=== PATIENT | female | born 1980 | race Caucasian/White ===

== ENCOUNTER 2018-01-31 16:24 | Inpatient (IN) | payer MEDICAID ==
[~2018-01-31] VITALS: Ht 170.2 cm; Wt 70.9 kg
[2018-01-31] MEDS ORDERED: PANT40TA25 PO (16:56)
[2018-01-31] MEDS ORDERED: FERR-82 PO (16:56)
[2018-01-31] MEDS ORDERED: RANI150T7 PO (16:56)
[2018-01-31 17:14] LABS: ANION GAP 13 mmol/L (8-16); CALCIUM, TOTAL 8.8 mg/dL (8.8-10.5); CARBON DIOXIDE 22 mmol/L (22-29); CHLORIDE 103 mmol/L (98-107); GLOMERULAR FILTR. RATE CALC > 60 mL/min (>60); GLUCOSE,RANDOM 108 mg/dL (70-110); POTASSIUM 3.8 mmol/L (3.5-5.1); SODIUM SERUM 138 mmol/L (136-145); UREA NITROGEN, BLOOD 14 mg/dL (7-18)
[2018-01-31 17:21] LABS: ALANINE AMINOTRANSFERASE 17 U/L (12-78); ALBUMIN 4.2 g/dL (3.4-5.0); ALKALINE PHOSPHATASE 54 U/L (46-116); ASPARTATE AMINOTRANSFERASE 14 U/L (15-37); BILIRUBIN,TOTAL 0.2 mg/dL (0.1-1.0); TOTAL PROTEIN, SERUM 8.1 g/dL (6.4-8.2)
[2018-01-31 17:24] LABS: EOSINOPHILS % (AUTO) 0.3 % (1.0-6.0); HEMATOCRIT 33.6 % (36-46); HEMOGLOBIN 10.6 g/dL (12.0-16.0); LYMPHOCYTES # (AUTO) 2.3 K/uL (1.0-4.8); LYMPHOCYTES % (AUTO) 20.2 % (22.0-44.0); MEAN CORPUSCULAR HEMOGLOBIN 19.2 pg (26.0-34.0); MEAN CORPUSCULAR HGB CONC 31.5 G/dL (31.0-37.0); MEAN CORPUSCULAR VOLUME 61 fL (80-100); MONOCYTES # (AUTO) 0.7 K/uL (0.1-1.0); MONOCYTES % (AUTO) 6.2 % (2.0-9.0); NEUTROPHILS # (AUTO) 8.1 K/uL (1.8-7.7); NEUTROPHILS % (AUTO) 72.3 % (40.0-70.0); PLATELET COUNT (AUTO) 652 K/uL (150-450); RED BLOOD CELL COUNT(AUTO) 5.51 MIL/uL (4.00-5.20)
[2018-01-31] MEDS ORDERED: CYCLOBENZAPRINE HCL 10 MG TABLET PO ONE (17:45)
[2018-01-31 18:08] LABS: PLATELET MORPHOLOGY COMMENT LARGE PLTS PRESENT
[2018-01-31] MEDS ORDERED: LOPERAMIDE HCL 2 MG CAPSULE PO PRN (20:15)
[2018-01-31] MEDS ORDERED: LORazepam 1 MG TABLET PO ONE (20:15)
[2018-01-31] MEDS ORDERED: LORazepam 2 MG TABLET PO PRN (20:15)
[2018-01-31] MEDS ORDERED: GuaiFENesin/D-METHORPHAN [SUGAR-FREE] 200-20MG/10 ML SYRUP UDCUP PO PRN (20:15)
[2018-01-31] MEDS ORDERED: HydrOXYzine PAMOATE 50 MG CAPSULE PO PRN (20:15)
[2018-01-31] MEDS ORDERED: CYANOCOBALAMIN 1,000 MCG/ML VIAL IM ONE (20:15)
[2018-01-31] MEDS ORDERED: ACETAMINOPHEN 325 MG TABLET PO ONE (21:00)
[2018-01-31] MEDS: ZOLPIDEM TARTRATE 10 MG TABLET PO PRN (23:01)
[2018-02-01] VITALS (7 sets, daily range): BP systolic 120–136; BP diastolic 72–82
[2018-02-01] MEDS: HALOPERIDOL 5 MG TABLET PO PRN ×2 (04:13→16:21)
[2018-02-01] MEDS ORDERED: PETROLATUM,WHITE 71 GM JELLY TP PRN (06:45)
[2018-02-01] MEDS ORDERED: ALBUTEROL SULFATE HFA 90 MCG/PUFF 8 GM INHALER IH PRN (06:45)
[2018-02-01] MEDS ORDERED: ACETAMINOPHEN 325 MG TABLET PO PRN (06:45)
[2018-02-01] MEDS ORDERED: DOCUSATE SODIUM 100 MG CAPSULE PO PRN (06:45)
[2018-02-01] MEDS ORDERED: ONDANSETRON HCL 4 MG TABLET PO PRN (06:45)
[2018-02-01] MEDS ORDERED: CloNIDine HCL 0.1 MG TABLET PO PRN ×2 (06:45→12:15)
[2018-02-01 08:32] LABS: CHOL/HDL RATIO 1.6 (3.9-5.7); FREE T4 (FREE THYROXINE) 0.94 ng/dL (0.76-1.46); THYROID STIMULATING HORMONE 1.51 uIU/mL (0.36-3.74)
[2018-02-01] MEDS: FOLIC ACID 1 MG TABLET PO SCH (08:55)
[2018-02-01] MEDS: MULTIVITAMINS WITH MINERALS, THERAPEUTIC TABLET PO SCH (08:56)
[2018-02-01] MEDS: THIAMINE HCL 100 MG TABLET PO SCH ×2 (08:56→16:18)
[2018-02-01] MEDS: LORazepam 2 MG TABLET PO SCH ×4 (08:56→20:30)
[2018-02-01] MEDS ORDERED: MAG HYDROX/AL HYDROX/SIMETH ES 30 ML SUSPENSION UDCUP PO PRN (12:15)
[2018-02-01] MEDS ORDERED: HydrOXYzine PAMOATE 50 MG CAPSULE PO PRN (12:15)
[2018-02-01] MEDS: ZOLPIDEM TARTRATE 10 MG TABLET PO PRN (22:42)
[2018-02-02 01:18] VITALS: BP 128/72
[2018-02-02] MEDS: HALOPERIDOL 5 MG TABLET PO PRN ×4 (02:28→18:00)
[2018-02-02] MEDS: LORazepam 2 MG TABLET PO PRN ×2 (02:29→06:46)
[2018-02-02] MEDS: IBUPROFEN 400 MG TABLET PO PRN ×2 (02:29→12:24)
[2018-02-02 02:42] VITALS: BP 128/68
[2018-02-02] MEDS: FERROUS SULFATE 325 MG EC TABLET PO SCH (07:08)
[2018-02-02 08:35] VITALS: BP 124/78
[2018-02-02] MEDS: LORazepam 2 MG TABLET PO SCH ×4 (09:08→20:28)
[2018-02-02] MEDS: MULTIVITAMINS WITH MINERALS, THERAPEUTIC TABLET PO SCH (09:08)
[2018-02-02] MEDS: FOLIC ACID 1 MG TABLET PO SCH (09:08)
[2018-02-02] MEDS: THIAMINE HCL 100 MG TABLET PO SCH ×2 (09:08→16:45)
[2018-02-02] MEDS ORDERED: QUET50XR PO (10:39)
[2018-02-02] MEDS ORDERED: GABA-531 PO (10:40)
[2018-02-02] MEDS ORDERED: HYDR50CA10 PO (10:40)
[2018-02-02] MEDS ORDERED: TRAZ-220 PO (10:40)
[2018-02-02] MEDS: NICOTINE 14 MG/24 HOUR PATCH TD SCH (13:04)
[2018-02-02 13:28] VITALS: BP 123/71
[2018-02-02 16:00] VITALS: BP 126/80
[2018-02-03 04:44] VITALS: BP 113/79
[2018-02-03] MEDS: HALOPERIDOL 5 MG TABLET PO PRN ×3 (04:45→14:10)
[2018-02-03] MEDS: LORazepam 2 MG TABLET PO PRN (04:45)
[2018-02-03] MEDS: FERROUS SULFATE 325 MG EC TABLET PO SCH (06:31)
[2018-02-03] MEDS ORDERED: LORazepam 1 MG TABLET PO PRN (07:00)
[2018-02-03 07:03] VITALS: BP 120/72
[2018-02-03 08:00] VITALS: BP 116/74
[2018-02-03 08:18] VITALS: BP 116/74
[2018-02-03] MEDS: MULTIVITAMINS WITH MINERALS, THERAPEUTIC TABLET PO SCH (08:50)
[2018-02-03] MEDS: THIAMINE HCL 100 MG TABLET PO SCH (08:50)
[2018-02-03] MEDS: FOLIC ACID 1 MG TABLET PO SCH (08:51)
[2018-02-03] MEDS: NICOTINE 14 MG/24 HOUR PATCH TD SCH (08:51)
[2018-02-03] MEDS: LORazepam 1 MG TABLET PO SCH ×2 (08:51→13:04)
[2018-02-03 09:13] LABS: EOSINOPHILS % (AUTO) 1.8 % (1.0-6.0); HEMATOCRIT 31.9 % (36-46); HEMOGLOBIN 9.9 g/dL (12.0-16.0); LYMPHOCYTES # (AUTO) 2.3 K/uL (1.0-4.8); LYMPHOCYTES % (AUTO) 22.8 % (22.0-44.0); MEAN CORPUSCULAR HEMOGLOBIN 19.3 pg (26.0-34.0); MEAN CORPUSCULAR HGB CONC 31.2 G/dL (31.0-37.0); MEAN CORPUSCULAR VOLUME 62 fL (80-100); MONOCYTES # (AUTO) 0.8 K/uL (0.1-1.0); MONOCYTES % (AUTO) 7.9 % (2.0-9.0); NEUTROPHILS # (AUTO) 6.7 K/uL (1.8-7.7); NEUTROPHILS % (AUTO) 66.5 % (40.0-70.0); PLATELET COUNT (AUTO) 474 K/uL (150-450); RED BLOOD CELL COUNT(AUTO) 5.16 MIL/uL (4.00-5.20); RED CELL DISTRIBUTION WIDTH 21.7 % (11.5-14.5)
[2018-02-03] MEDS: IBUPROFEN 400 MG TABLET PO PRN (10:43)
[2018-02-03 11:00] VITALS: BP 119/81
[2018-02-03 16:05] VITALS: BP 118/67
[2018-02-04] MEDS ORDERED: LORazepam 1 MG TABLET PO PRN (07:00)
== END 2018-02-03 16:55 | disposition home or self-care (01) | DRG 751 ==
LOC: EMS 16:25 → B3A 02-01 00:16
DX: F33.9 Major depressive disorder, recurrent, unspecified (principal); R45.851 Suicidal ideations; F41.9 Anxiety disorder, unspecified; D64.9 Anemia, unspecified; G89.29 Other chronic pain; F10.10 Alcohol abuse, uncomplicated; K21.9 Gastro-esophageal reflux disease without esophagitis; F11.23 Opioid dependence with withdrawal; M47.9 Spondylosis, unspecified; D72.829 Elevated white blood cell count, unspecified; R79.89 Other specified abnormal findings of blood chemistry; F17.200 Nicotine dependence, unspecified, uncomplicated; Z23 Encounter for immunization; Z87.11 Personal history of peptic ulcer disease; Z98.84 Bariatric surgery status; Z88.0 Allergy status to penicillin; Z91.040 Latex allergy status
CPT/HCPCS: 84439; 84443; 96372; 99285; G0480; J3420; Q0162